=== PATIENT | male | born 1980 | race Caucasian/White ===

== ENCOUNTER 2023-06-21 13:56 | Emergency (ER) | payer OTHER ==
[2023-06-21 14:36] VITALS: BP 141/90; PULSE 82; RESP 18; TEMP 98.4; BMI 24.8
[2023-06-21] MEDS ORDERED: IBUPROFEN 400 MG TABLET (FP) PO ONE ×2 (14:50→14:53)
[2023-06-21 16:08] LABS: HEMATOCRIT 46.6 % (35.4-49); MCH 28.2 pg (25.7-33.7); MCHC 34.3 g/dl (32.0-35.9); MEAN CELL VOLUME 82.3 fl (80-96); MEAN PLT VOLUME 10.1 fl (7.5-11.1); PLATELET COUNT 176.6 10^3/uL (134-434); RBC 5.66 10^6/uL (4.00-5.60); RDW 14.8 % (11.9-15.9); WHITE BLOOD COUNT 5.5 10^3/uL (4.0-10.8)
[2023-06-21 16:20] LABS: ALBUMIN 4.4 g/dl (3.4-5.0); BILIRUBIN,TOTAL 0.4 mg/dl (0.2-1); CREATININE 1.1 mg/dl (0.6-1.3); POTASSIUM 4.2 mmol/L (3.5-5.1); TOT PROT 6.5 g/dl (6.4-8.2)
[2023-06-21 16:24] LABS: PLATELET ESTIMATE ADEQUATE
== END 2023-06-21 16:53 | disposition home or self-care (01) ==
LOC: FER 13:56
DX: R07.2 Precordial pain (principal); Z20.822 Contact with and (suspected) exposure to COVID-19
CPT/HCPCS: 0241U-QW; 36415; 71045-TC-FY; 80053; 84484; 85025; 93005; 93010; 99285-25